=== PATIENT | male | born 1960 | race Caucasian/White ===

== ENCOUNTER 2018-09-22 18:05 | Emergency (ER) | payer MEDICARE, OTHER, SELFPAY ==
[2018-09-22 18:11] VITALS: BP 135/77; PULSE 55; RESP 16; TEMP 36.3; O2SAT 95
--- NOTE | 2018-09-22 18:16 | DI.RAD_ITS ---
SYMPTOM/DIAGNOSIS: S/P CUT HAND WITH KNIFE, R/O FOREIGN BODY/FRACTURE LEFT HAND: 09/22 Three views were obtained. No fracture or foreign body is seen.
--- NOTE | 2018-09-22 18:16 | ED.GENADUL_ITS ---
Discharge Plan Disposition Patient Disposition: HOME Condition: Stable Discharge Details Chief Complaint: Laceration Clinical Impression: Laceration of hand, left Primary Care Provider: Afshan,Local ED Provider: Sharona Doherty Home Meds and New Rx's Prescriptions: Continued magnesium oxide 420 mg Tablet 420 mg PO BID RF: 0 lidocaine 5 % Cream 1 applic topical Q6H PRN PRNRF: 0 miconazole nitrate 2 % Powder 1 applic TOPICAL BID RF: 0 atenolol 25 mg Tablet 25 mg PO DAILY RF: 0 simvastatin 80 mg Tablet 40 mg PO DAILY RF: 0 sildenafil 100 mg Tablet 100 mg PO DAILY PRNRF: 0 venlafaxine 100 mg Tablet 200 mg PO USEASDIRECTD RF: 0 hydrocodone-acetaminophen 7.5-325 mg Tablet 1 tab PO Q6H PRN PRNRF: 0 docusate sodium 100 mg Capsule 100 mg PO BID RF: 0 nitroglycerin 0.4 % (w/w) Ointment 1 inch PA BID PRNRF: 0 Discharge Instructions Instructions: Laceration (ED) Additional Instructions: Keep left hand wound clean and dry. Wash with soap and water and cover with topical antibiotic ointment if any signs of infection. Alternate tylenol and motrin as needed and directed for pain. Return to the emergency department in 1 week for suture removal. If you develop any symptoms of finger weakness or numbness or difficulty with movement, follow up with orthopedics for further evaluation. Return to the emergency department at any time with any worsening or new concerning symptoms. Referrals: Montrell Giles MD [ 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 There is a 4 cm laceration on the dorsal left hand which extends to the dermis. There appears to be oozing but no pulsatile bleeding. Bleeding controlled with pressure. No obvious tendon, bony or nerve injury. Neurovascularly intact. Denies any known foreign bodies. Will send for hand xray to r/o fracture vs foreign bodies. Xray negative. Wound was soaked and irrigated and explored and no obvious foreign bodies or tendon injury noted. Wound closed with 3 vicryl 4-0 sutures and 7 nylon 5-0 sutures. Wound covered with topical antibiotic and dressing. I do not see an indication for oral antibiotics. Pt instructed on proper wound care. Pt given ortho contact information if he develops and finger weakness or numbness. He is advised to return to the ER if 7 days for suture removal. Medical Records Medical records reviewed: Yes I reviewed the patient's medical records. Imaging Data Radiologic Study: Radiologist's impression: XR Left Hand EXAM DATE/TIME: 09/22/2018 6:29 PM CLINICAL HISTORY: 57 years old, male; Other: Cut hand w/ kmife, R/O foreign body/fx TECHNIQUE: Imaging protocol: XR Left hand. Views: 3 or more views. COMPARISON: No relevant prior studies available. FINDINGS: Bones/joints: There is no acute fracture dislocation. Soft tissues: There is no radiopaque foreign body. IMPRESSION: No acute fracture or retained foreign body. HPI General Mode of arrival: ambulatory . Date/Time Provider Initiated Documentation: 09/22/18 18:16 . Limitations to Documentation: no limitations . Information obtained by: patient . HPI Narrative: Patient is a 57-year-old male presents with injury to his left hand sustained with a knife prior to arrival. Patient states he was cutting a zip tie with a bone knife when he accidentally cut his left hand. He states it occurred 2 hours prior to arrival and he initially was not too concerned but states the bleeding would not stop. He states his tetanus is up-to-date. He denies any numbness, weakness or tingling in his hand. He denies any known bony injury or foreign body. Related Data Home Medications Medication Instructions Recorded Confirmed atenolol 25 mg PO DAILY 09/22/18 09/22/18 docusate sodium 100 mg PO BID 09/22/18 09/22/18 hydrocodone-acetaminophen 1 tab PO Q6H PRN PRN 09/22/18 09/22/18 lidocaine 1 applic TOPICAL Q6H PRN PRN 09/22/18 09/22/18 magnesium oxide 420 mg PO BID 09/22/18 09/22/18 miconazole nitrate 1 applic TOPICAL BID 09/22/18 09/22/18 nitroglycerin 1 inch PA BID PRN 09/22/18 09/22/18 sildenafil 100 mg PO DAILY PRN 09/22/18 09/22/18 simvastatin 40 mg PO DAILY 09/22/18 09/22/18 venlafaxine 200 mg PO USEASDIRECTD 09/22/18 09/22/18 Allergies Allergy/AdvReac Type Severity Reaction Status Date / Time Penicillins Allergy Severe Anaphylaxsi Unverified 09/22/18 18:19 s flunisolide AdvReac Mild Other (See Unverified 09/22/18 18:19 Comment) General Stated Complaint: Laceration DONTA: 3 Review of Systems Review of Systems All systems reviewed & are unremarkable except as noted in HPI and below PFSH Medical History Anxiety (Chronic) Depression (Chronic) Hx of hyperlipidemia (Acute) PTSD (post-traumatic stress disorder) (Acute) Social History Smoking/Tobacco Use Status: Former Tobacco Use Quit Date: 09/20/05 Alcohol Intake: never Drug use: Never Substance use type: does not use Do you feel safe at home: Yes Do you feel safe in your relationship?: Yes Exam Const General: cooperative, healthy appearing and no acute distress HENMT Head: normal to inspection Mouth: oral mucosae normal Eyes General: appearance normal, both eyes and all related structures Neck Neck: normal visual inspection Resp Effort & Inspection: normal respiratory effort and able to speak in complete sentences Cardio Rate: regular rate Skin General skin exam: no rashes or lesions noted Neuro General: alert, awake and oriented x3 Motor: muscle tone normal throughout and strength 5/5 throughout Sensory Exam: no sensory deficits noted Other: Normal motor function of all fingers. 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 Extrem Hand/finger images: 1. 4 cm straight laceration noted extending through dermis on dorsal left hand. Mild oozing noted. No pulsatile bleeding noted. No obvious foreign body or bony injury noted. With inspection, no obvious tendon injury. Other: Cap refill less than 2 seconds. Left radial and ulnar pulses intact. Psych Appearance: grossly normal Affect: normal affect Course Vital Signs Temperature 97.3 F L 09/22/18 18:11 Pulse 55 L 09/22/18 18:11 Respiratory Rate 16 09/22/18 18:11 Blood Pressure 135/77 09/22/18 18:11 Pulse Oximetry 95 09/22/18 18:11 Temperature 97.3 F L 09/22/18 18:11 Temperature Source Temporal Artery Scan 09/22/18 18:11 Pulse 55 L 09/22/18 18:11 Respiratory Rate 16 09/22/18 18:11 Blood Pressure 135/77 09/22/18 18:11 Blood Pressure Position Sitting 09/22/18 18:11 Pulse Oximetry 95 09/22/18 18:11 Oxygen Delivery Method Room Air 09/22/18 18:11 Oxygen Flow Rate 0 09/22/18 18:11 Pain Level 7 09/22/18 18:11 Procedures Laceration Laceration 1: Site: hand Side (If applicable): left Size (cm): 4 Description: linear Depth: simple, single layer Local Anesthetic: Lidocaine 1% and with Epi Amount of anesthesia used (mL): 8 Pre-repair: wound explored, irrigated extensively and deep structures intact Skin layer closed with: nylon Size (cm): 5-0 Number of sutures: 7 Technique: simple, interrupted Subcutaneous layer closed with: vicryl Size: 4-0 Number of sutures: 3 Technique: simple, interrupted
--- NOTE | 2018-09-22 18:49 | DI.VRAD_ITS ---
EXAM: XR Left Hand EXAM DATE/TIME: 09/22/2018 6:29 PM CLINICAL HISTORY: 57 years old, male; Other: Cut hand w/ kmife, R/O foreign body/fx TECHNIQUE: Imaging protocol: XR Left hand. Views: 3 or more views. COMPARISON: No relevant prior studies available. FINDINGS: Bones/joints: There is no acute fracture dislocation. Soft tissues: There is no radiopaque foreign body. IMPRESSION: No acute fracture or retained foreign body. Dictated and Authenticated by: Srini Angelo MD. Ordering:GALLO Tabor MD
== END 2018-09-22 21:00 | disposition home or self-care (01) ==
PROVIDERS: Emergency Provider Physician Assistant
DX: S61.412A Laceration without foreign body of left hand, initial encounter (principal); W26.0XXA Contact with knife, initial encounter
CPT/HCPCS: 12002; 73130

== ENCOUNTER 2018-09-29 13:49 | Emergency (ER) | payer MEDICARE, OTHER, SELFPAY ==
[2018-09-29 13:59] VITALS: BP 112/80; PULSE 62; RESP 18; TEMP 37; O2SAT 97
--- NOTE | 2018-09-29 14:05 | ED.GENADUL_ITS ---
Discharge Plan Disposition Patient Disposition: HOME Discharge Details Chief Complaint: SutureRem Clinical Impression: Encounter for removal of sutures Primary Care Provider: AfshanLocal ED Provider: Dilan Coleman Home Meds and New Rx's Prescriptions: No Action magnesium oxide 420 mg Tablet 420 mg PO BID RF: 0 lidocaine 5 % Cream 1 applic topical Q6H PRN PRNRF: 0 miconazole nitrate 2 % Powder 1 applic TOPICAL BID RF: 0 atenolol 25 mg Tablet 25 mg PO DAILY RF: 0 simvastatin 80 mg Tablet 40 mg PO DAILY RF: 0 sildenafil 100 mg Tablet 100 mg PO DAILY PRNRF: 0 venlafaxine 100 mg Tablet 200 mg PO USEASDIRECTD RF: 0 hydrocodone-acetaminophen 7.5-325 mg Tablet 1 tab PO Q6H PRN PRNRF: 0 docusate sodium 100 mg Capsule 100 mg PO BID RF: 0 nitroglycerin 0.4 % (w/w) Ointment 1 inch ID BID PRNRF: 0 Discharge Instructions Instructions: Stitches Removal (ED) Additional Instructions: Medications were not reviewed today. Take your medications as prescribed and be sure to review your medications with your primary care physician to ensure up-to-date list. Please contact your primary care physician to arrange follow-up. Return to the ER for any worsening or new concerning symptoms. Medical Decision Making 57-year-old male here 7 days status post primary closure of left hand laceration for suture removal. Multiple sutures pulled out while he was washing his hands. Single suture remains. Wound healing well with no signs of infection. Single suture was removed by me. Usual customary discharge instructions were provided. HPI General Mode of arrival: ambulatory . Date/Time Provider Initiated Documentation: 09/29/18 13:58 . Limitations to Documentation: no limitations . Information obtained by: patient . HPI Narrative: 57-year-old male returns today for suture removal from laceration left hand. Patient notes multiple stitches have pulled out when he was washing his hands. Only one suture remains. Wound is been healing well otherwise. He has used some Steri-Strips to support the wound where stitches came out. No associated redness, swelling or discharge. Related Data Home Medications Medication Instructions Recorded Confirmed atenolol 25 mg PO DAILY 09/22/18 09/22/18 docusate sodium 100 mg PO BID 09/22/18 09/22/18 hydrocodone-acetaminophen 1 tab PO Q6H PRN PRN 09/22/18 09/22/18 lidocaine 1 applic TOPICAL Q6H PRN PRN 09/22/18 09/22/18 magnesium oxide 420 mg PO BID 09/22/18 09/22/18 miconazole nitrate 1 applic TOPICAL BID 09/22/18 09/22/18 nitroglycerin 1 inch ID BID PRN 09/22/18 09/22/18 sildenafil 100 mg PO DAILY PRN 09/22/18 09/22/18 simvastatin 40 mg PO DAILY 09/22/18 09/22/18 venlafaxine 200 mg PO USEASDIRECTD 09/22/18 09/22/18 Allergies Allergy/AdvReac Type Severity Reaction Status Date / Time Penicillins Allergy Severe Anaphylaxsi Unverified 09/22/18 18:19 s flunisolide AdvReac Mild Other (See Unverified 09/22/18 18:19 Comment) General Stated Complaint: SutureRem DONTA: 4 Review of Systems Integumentary/Breasts Reports [facility] Medical History Anxiety (Chronic) Depression (Chronic) Hx of hyperlipidemia (Acute) PTSD (post-traumatic stress disorder) (Acute) Social History Smoking/Tobacco Use Status: Former Tobacco Use Quit Date: 09/20/05 Alcohol Intake: never Drug use: Never Substance use type: does not use Do you feel safe at home: Yes Do you feel safe in your relationship?: Yes Exam Skin Wounds: wounds noted (Left hand, linear wound healing with no signs of infection one suture intac) Course Vital Signs Temperature 37.0 C 09/29/18 13:59 Pulse 62 09/29/18 13:59 Respiratory Rate 18 09/29/18 13:59 Blood Pressure 112/80 09/29/18 13:59 Pulse Oximetry 97 09/29/18 13:59 Temperature 37.0 C 09/29/18 13:59 Temperature Source Temporal Artery Scan 09/29/18 13:59 Pulse 62 09/29/18 13:59 Respiratory Rate 18 09/29/18 13:59 Respiratory Effort 09/29/18 14:03 Blood Pressure 112/80 09/29/18 13:59 Pulse Oximetry 97 09/29/18 13:59 Oxygen Delivery Method Room Air 09/29/18 13:59 Oxygen Flow Rate 0 09/29/18 13:59
== END 2018-09-29 14:10 | disposition home or self-care (01) ==
PROVIDERS: Emergency Provider Student in an Organized Health Care Education/Training Program
DX: S61.412D Laceration without foreign body of left hand, subsequent encounter (principal); W26.0XXD Contact with knife, subsequent encounter; Z48.02 Encounter for removal of sutures